=== PATIENT | female | born 1995 | race Caucasian/White ===

== ENCOUNTER 2017-05-19 20:37 | Emergency (ER) | payer OTHER ==
[~2017-05-19] VITALS: Ht 157.5 cm; Wt 77.1 kg
[2017-05-19] MEDS ORDERED: PRENATAL + DHA1 EAC1 (21:17)
[2017-05-20] MEDS ORDERED: OSEL75CA PO (02:38)
[2017-05-20] MEDS ORDERED: PEPCID40 MG PO (02:38)
[2017-05-20] MEDS ORDERED: PHENERGAN25 MG PO (02:38)
== END 2017-05-20 02:32 | disposition home or self-care (01) ==
LOC: ER 20:37
DX: O26.892 Other specified pregnancy related conditions, second trimester (principal); K29.70 Gastritis, unspecified, without bleeding; J11.1 Influenza due to unidentified influenza virus with other respiratory manifestations; Z34.01 Encounter for supervision of normal first pregnancy, first trimester

== ENCOUNTER 2017-09-18 11:46 | Inpatient (IN) | payer OTHER ==
[~2017-09-18] VITALS: Ht 157.5 cm; Wt 82.6 kg
[~2017-09-18 11:46] MED LIST: OSEL75CA PO; PEPCID40 MG PO; PHENERGAN25 MG PO; PRENATAL + DHA1 EAC1
[2017-10-04] MEDS ORDERED: FOLIC ACID0.4 MG PO (06:44)
== END 2017-10-06 13:37 | disposition home or self-care (01) | DRG 775 ==
LOC: LDR 10-04 05:56 → OB/GYN 10-04 14:45
PROC: 10E0XZZ Delivery of Products of Conception, External Approach (ICD-10-PCS; principal; 2017-10-04)
PROC: 0W8NXZZ Division of Female Perineum, External Approach (ICD-10-PCS; 2017-10-04)
PROC: 10907ZC Drainage of Amniotic Fluid, Therapeutic from Products of Conception, Via Natural or Artificial Opening (ICD-10-PCS; 2017-10-04)
PROC: 3E033VJ Introduction of Other Hormone into Peripheral Vein, Percutaneous Approach (ICD-10-PCS; 2017-10-04)
PROC: 4A1HXCZ Monitoring of Products of Conception, Cardiac Rate, External Approach (ICD-10-PCS; 2017-10-04)
DX: O24.420 Gestational diabetes mellitus in childbirth, diet controlled (principal); Z3A.39 39 weeks gestation of pregnancy; Z37.0 Single live birth

== ENCOUNTER 2017-09-26 09:30 | Outpatient (CLI) | payer OTHER | END 2017-09-26 10:25 | disposition home or self-care (01) | LOC: NST 09:30 | DX: O24.419 Gestational diabetes mellitus in pregnancy, unspecified control (principal) ==

== ENCOUNTER 2017-09-30 10:28 | Outpatient (CLI) | payer OTHER | END 2017-09-30 11:26 | disposition home or self-care (01) | LOC: NST 10:28 | DX: O24.419 Gestational diabetes mellitus in pregnancy, unspecified control (principal); Z34.03 Encounter for supervision of normal first pregnancy, third trimester ==

== ENCOUNTER 2019-08-25 05:21 | Inpatient (IN) | payer OTHER ==
[~2019-08-25] VITALS: Ht 157.5 cm; Wt 81.6 kg
[~2019-08-25 05:21] MED LIST changes: +FOLIC ACID0.4 MG PO
[2019-08-25] MEDS ORDERED: PRENATAL TABLE1 EAC1 PO (05:35)
== END 2019-08-27 13:34 | disposition home or self-care (01) | DRG 807 ==
LOC: OB/GYN 05:21 → LDR 05:21 → OB/GYN 13:56
PROVIDERS: ADMIT Specialist; ATTEND Specialist
PROC: 10E0XZZ Delivery of Products of Conception, External Approach (ICD-10-PCS; principal; 2019-08-25)
PROC: 0UQMXZZ Repair Vulva, External Approach (ICD-10-PCS; 2019-08-25)
PROC: 3E033VJ Introduction of Other Hormone into Peripheral Vein, Percutaneous Approach (ICD-10-PCS; 2019-08-25)
PROC: 10907ZC Drainage of Amniotic Fluid, Therapeutic from Products of Conception, Via Natural or Artificial Opening (ICD-10-PCS; 2019-08-25)
PROC: 4A1HXCZ Monitoring of Products of Conception, Cardiac Rate, External Approach (ICD-10-PCS; 2019-08-25)
DX: O71.82 Other specified trauma to perineum and vulva (principal); Z37.0 Single live birth; Z3A.39 39 weeks gestation of pregnancy